=== PATIENT | male | born 1955 | race Caucasian/White ===

== ENCOUNTER 2018-05-25 21:21 | Observation (INO) | payer OTHER ==
[~2018-05-25] VITALS: Ht 177.8 cm; Wt 117.0 kg
[~2018-05-25 21:21] MED LIST: ADULT LOW DOSE81 M1 PO; ALEVE220 M2 PO; ASPIRIN EC325 MG PO; ASPIRIN81 M1 PO; Aspirin E.C. PO; Benadryl PO; CARVEDILOL12.5 MG PO; CHLORPHENIRAMINE4 MG PO; CIPRO500 MG PO; COREG12.5 M1 PO; COREG3.125 MG PO; COREG6.25 M1 PO; Coreg PO; DEX GLUCOSE PO; FISH OIL 1,2001 EAC4 PO; Feosol PO; GLIPIZIDE10 M1 G-TUBE; GLIPIZIDE10 MG PO; GLUCOPHAGE XR1000 MG PO; GLUCOPHAGE1000 MG PO; GLUCOTROL10 MG PO; HYDROCODON-ACE1 EAC7 PO; KEPPRA500 MG PO; LANTUS 10100 UNITS/ SC; LANTUS 3 M100 UNITS1 SC; LEVAQUIN750 MG PO; LIPITOR80 MG PO; LISINOPRIL20 MG PO; LISINOPRIL40 MG PO; LITE COAT ASPI325 M1 PO; LO-DOSE ASPIRIN81 M1 PO; LORTAB 5-325 M1 EACH PO; Levaquin PO; Lipitor PO; MELOXICAM7.5 MG PO; METFORMIN HCL1000 MG PO; NORVASC10 MG PO; NOVOLOG 10100 UNITS/ SC; OxyCODONE PO; PANTOPRAZOLE SO40 MG PO; PRINIVIL10 MG PO; PRINIVIL20 MG PO; ST. JOSEPH ASPI81 MG PO; TYLENOL REGULA325 MG PO; ZESTRIL,PRINIVI10 MG PO; ZESTRIL5 MG PO; Zestril,Prinivil PO; Zyvox PO
[2018-05-25 21:49] LABS: HEMATOCRIT 39.6 % (38.0-50.0); HEMOGLOBIN 13.5 G/DL (12.5-16.6); MCH 28.5 PG (29.0-34.0); MCHC 34.1 G/DL (30.0-36.0); MCV 83.7 FL (86-99); PLATELET COUNT 246 K/uL (156-360); RBC DIS.WIDTH-CV 13.6 % (11.8-14.6); RBC DIS.WIDTH-SD 41.6 % (39-53); RED BLOOD COUNT 4.73 M/uL (4.00-5.50); WHITE BLOOD COUNT 8.6 K/uL (4.1-10.2)
[2018-05-25 22:11] LABS: CHLORIDE 106 mEq/L (99-109); POTASSIUM 4.4 mEq/L (3.7-5.4); SODIUM 143 mEq/L (136-147)
[2018-05-25 22:13] LABS: GLUCOSE 123 mg/dL (70-99)
[2018-05-25 22:16] LABS: TROP-I INTERPRETATION NEGATIVE; TROPONIN-I < 0.01 ng/mL (0.0-0.30)
[2018-05-25 22:17] LABS: GFR ESTIMATE (CALCULATED) > 59 mL/min/ (58.99-99999)
[2018-05-25 22:18] LABS: UREA NITROGEN (BUN) 29 mg/dL (9-23)
[2018-05-25] MEDS ORDERED: GLUCOPHAGE1000 MG PO (23:48)
[2018-05-25] MEDS ORDERED: NOVOLIN N100 UNITS/ SC ×2 (23:51)
[2018-05-25] MEDS ORDERED: LASIX20 MG PO (23:51)
[2018-05-25] MEDS ORDERED: FERGON270 MG PO (23:51)
[2018-05-25] MEDS ORDERED: NOVOLIN,HU100 UNITS1 SC ×2 (23:51→23:52)
[2018-05-26 00:01] LABS: TROP-I INTERPRETATION NEGATIVE; TROPONIN-I 0.02 ng/mL (0.0-0.30)
[2018-05-26 02:59] LABS: ALBUMIN 4.3 g/dL (3.2-4.8)
[2018-05-26 03:02] LABS: TOTAL PROTEIN 6.9 g/dL (6.4-8.3)
[2018-05-26 03:03] LABS: TOTAL BILIRUBIN 0.7 mg/dL (0.0-1.0)
[2018-05-26 03:04] LABS: ALKALINE PHOSPHATASE 86 IU/L (3-129)
[2018-05-26 03:07] LABS: AST (GOT) 17 IU/L (2-34); DIRECT BILIRUBIN 0.3 mg/dL (0.0-0.3)
[2018-05-26 03:08] LABS: ALT (GPT) 21 IU/L (3-49)
[2018-05-26 03:34] VITALS: BP 114/70
[2018-05-26 04:56] LABS: HEMATOCRIT 36.5 % (38.0-50.0); MCH 27.6 PG (29.0-34.0); MCHC 32.9 G/DL (30.0-36.0); MCV 83.9 FL (86-99); PLATELET COUNT 201 K/uL (156-360); RBC DIS.WIDTH-CV 13.6 % (11.8-14.6); RBC DIS.WIDTH-SD 41.6 % (39-53); RED BLOOD COUNT 4.35 M/uL (4.00-5.50); WHITE BLOOD COUNT 7.3 K/uL (4.1-10.2)
[2018-05-26 05:17] LABS: TROP-I INTERPRETATION NEGATIVE; TROPONIN-I < 0.01 ng/mL (0.0-0.30)
[2018-05-26 05:30] LABS: CHLORIDE 105 MEQ/L (99-109); CREATININE 0.8 MG/DL (0.6-1.3); GFR ESTIMATE (CALCULATED) > 59 mL/min/ (58.99-99999); GLUCOSE 94 mg/dL (70-99); POTASSIUM 3.7 MEQ/L (3.7-5.4); SODIUM 139 MEQ/L (136-147); UREA NITROGEN (BUN) 22 mg/dL (9-23)
[2018-05-26 07:59] VITALS: BP 121/60
[2018-05-26 11:40] VITALS: BP 106/55
[2018-05-26 12:34] LABS: TROP-I INTERPRETATION NEGATIVE; TROPONIN-I < 0.01 ng/mL (0.0-0.30)
[2018-05-26] MEDS ORDERED: CARVEDILOL25 MG PO (15:09)
[2018-05-26] MEDS ORDERED: LISINOPRIL20 MG PO (15:10)
== END 2018-05-26 16:30 | disposition home or self-care (01) ==
LOC: EME 21:21 → EDOF 05-26 02:26 → ENRESERV 05-26 02:28 → 4SOUTH 05-26 03:14
PROVIDERS: Emergency Medicine; Hospitalist
DX: R00.2 Palpitations (principal); I47.1 Supraventricular tachycardia; I25.10 Atherosclerotic heart disease of native coronary artery without angina pectoris; Z95.1 Presence of aortocoronary bypass graft; R60.0 Localized edema; E11.51 Type 2 diabetes mellitus with diabetic peripheral angiopathy without gangrene; I10 Essential (primary) hypertension; E78.5 Hyperlipidemia, unspecified; Z79.4 Long term (current) use of insulin; E66.9 Obesity, unspecified; Z68.38 Body mass index [BMI] 38.0-38.9, adult; G40.909 Epilepsy, unspecified, not intractable, without status epilepticus; Z86.73 Personal history of transient ischemic attack (TIA), and cerebral infarction without residual deficits; I35.0 Nonrheumatic aortic (valve) stenosis; Z82.49 Family history of ischemic heart disease and other diseases of the circulatory system; Z82.3 Family history of stroke; Z80.0 Family history of malignant neoplasm of digestive organs; Z98.890 Other specified postprocedural states
CPT/HCPCS: 71046; 71275; 80048; 80076; 82948; 83880; 84484; 85027; 93005; 93970; 99281; 99285; G0378; J1650; J1815; J7040

== ENCOUNTER 2018-07-17 12:04 | Emergency (ER) | payer OTHER ==
[~2018-07-17] VITALS: Ht 177.8 cm; Wt 119.6 kg
[~2018-07-17 12:04] MED LIST changes: +CARVEDILOL25 MG PO; +FERGON270 MG PO; +LASIX20 MG PO; +NOVOLIN N100 UNITS/ SC; +NOVOLIN,HU100 UNITS1 SC
[2018-07-17] MEDS ORDERED: PERCOCET 7.51 TABLET PO (13:56)
[2018-07-17] MEDS ORDERED: KEFLEX500 MG PO (13:56)
[2018-07-17 14:51] VITALS: BP 158/62
== END 2018-07-17 14:52 | disposition home or self-care (01) ==
LOC: EME 12:04
PROC: 2W3JX1Z Immobilization of Right Finger using Splint (ICD-10-PCS; principal; 2018-07-17)
PROC: 3E0234Z Introduction of Serum, Toxoid and Vaccine into Muscle, Percutaneous Approach (ICD-10-PCS; principal; 2018-07-17)
DX: S62.634B Displaced fracture of distal phalanx of right ring finger, initial encounter for open fracture (principal); W26.8XXA Contact with other sharp object(s), not elsewhere classified, initial encounter; Y93.89 Activity, other specified; Z23 Encounter for immunization; E11.9 Type 2 diabetes mellitus without complications; I10 Essential (primary) hypertension; E78.5 Hyperlipidemia, unspecified; Z79.84 Long term (current) use of oral hypoglycemic drugs
CPT/HCPCS: 73130; 99281; 99284